=== PATIENT | male | born 1990 | race African-American/Black ===

== ENCOUNTER 2020-10-10 13:19 | Emergency (ER) | payer MEDICAID, OTHER ==
[~2020-10-10] VITALS: Ht 177.8 cm; Wt 129.3 kg
[2020-10-10 15:25] VITALS: BP 117/67
== END 2020-10-10 16:47 | disposition home or self-care (01) ==
LOC: ER 13:19
DX: L02.214 Cutaneous abscess of groin (principal); R11.0 Nausea